=== PATIENT | male | born 1965 | race African-American/Black ===

== ENCOUNTER 2021-02-12 11:09 | Emergency (ER) | payer SELFPAY ==
[2021-02-12 11:22] VITALS: BP 162/71; PULSE 74; TEMP 98.5; BMI 73.5
== END 2021-02-12 13:04 | disposition home or self-care (01) ==
LOC: JERFT 11:09
DX: G56.03 Carpal tunnel syndrome, bilateral upper limbs (principal)
CPT/HCPCS: 73110-TC-LT-FY; 73110-TC-RT-FY; 73130-TC-LT-FY; 73130-TC-RT-FY; 99284-25

== ENCOUNTER 2023-05-01 09:24 | Day surgery (SDC) | payer OTHER ==
[2023-04-26 10:03] VITALS: BMI 33.3
[2023-04-30] MEDS: ACETAMINOPHEN 1000 MG/100 ML BAG IVPB ONE ×2 (16:35→17:40)
[2023-04-30] MEDS: KETOROLAC TROMETHAMINE 30 MG/1 ML VIAL IVPUSH SCH ×2 (17:42→22:38)
[2023-04-30] MEDS: ACETAMINOPHEN 500 MG TABLET (FP) PO SCH ×2 (17:48→23:38)
[2023-04-30] MEDS: ONDANSETRON 4 MG/2 ML VIAL IVPUSH PRN (21:34)
[2023-04-30] MEDS: CEFAZOLIN SODIUM 2 GM in DEXTROSE 5%-WATER 100 ML IVPB SCH (21:34)
[2023-04-30] MEDS: GABAPENTIN 300 MG CAPSULE PO SCH (21:34)
[2023-05-01 01:36] VITALS: RESP 18
[2023-05-01] MEDS: SENNOSIDES/DOCUSATE COMBO (SENNA PLUS) TABLET (UD) PO SCH ×2 (06:21→13:08)
[2023-05-01] MEDS: CEFAZOLIN SODIUM 2 GM in DEXTROSE 5%-WATER 100 ML IVPB SCH ×2 (06:25→13:09)
[2023-05-01] MEDS: ACETAMINOPHEN 500 MG TABLET (FP) PO SCH ×2 (06:25→18:11)
[2023-05-01] MEDS: ONDANSETRON 4 MG/2 ML VIAL IVPUSH PRN ×2 (06:44→13:08)
[2023-05-01 07:41] LABS: HEMATOCRIT 34.5 % (35.4-49); HEMOGLOBIN 11.1 G/dL (11.7-16.9); MCH 26.6 pg (25.7-33.7); MCHC 32.2 g/dl (32.0-35.9); MEAN CELL VOLUME 82.6 fl (80-96); PLATELET COUNT 212.1 10^3/uL (134-434); RBC 4.18 10^6/uL (4.00-5.60); RDW 15.9 % (11.9-15.9); WHITE BLOOD COUNT 12.8 10^3/uL (4.0-10.8)
[2023-05-01] MEDS: KETOROLAC TROMETHAMINE 30 MG/1 ML VIAL IVPUSH PRN ×2 (08:31→15:58)
[2023-05-01 09:10] LABS: CALCIUM 8.5 mg/dL (8.5-10.1)
[2023-05-01 09:11] LABS: BLOOD UREA NITROGEN 13.9 mg/dL (7-18)
[2023-05-01 09:15] LABS: CREATININE 0.8 mg/dL (0.55-1.3)
[~2023-05-01 09:24] MED LIST: ACETAMINOPHEN 1000 MG/100 ML BAG IVPB ONE; ACETAMINOPHEN INJECTION 100 ML IVPB ONE; BUPIVACAINE HCL/PF 0.5% (5MG/ML) 10 ML VIAL ONE; BUPIVACAINE LIPOSOME/PF (EXPAREL) 266 MG/20 ML VIAL ONE; BUPIVICAINE 0.25%/MORPH PF/KETOROLAC - 51ML DISP.SYRINGE IA ONE; CEFAZOLIN 2 GM in DEXTROSE 5%-WATER - 50 ML IVPB ONE; KETOROLAC TROMETHAMINE 30 MG/1 ML VIAL IVPUSH PRN; LACTATED RINGERS SOLUTION 1,000 ML IV SCH; LIDOCAINE HCL/PF 2% SDV 5ML VIAL ONE; MAG HYDROX/AL HYDROX/SIMETH 30 ML UNIT-DOSE CUP PO PRN; MIDAZOLAM HCL 2 MG/2 ML SINGLE DOSE VIAL ONE; ONDANSETRON 4 MG/2 ML VIAL IVPUSH PRN; PROPOFOL 20 ML ONE; PROPOFOL 60 ML ONE; SODIUM CHLORIDE 0.9% P/F 10 ML VIAL IJ ONE; TRANEXAMIC ACID 1000 MG/10 ML VIAL IVPUSH ONE; TRANEXAMIC ACID 1000 MG/10 ML VIAL ONE; VANCOMYCIN 1,000 MG VIAL (RESTRICTED TO ID ONLY) ONE; ceFAZolin SODIUM 1 GM VIAL ONE; oxyCODONE HCL 10 MG SUSTAINED ACTING TABLET PO SCH; oxyCODONE HCL 5 MG TABLET PO PRN
[2023-05-01] MEDS ORDERED: ASPIRIN 325 MG TABLET PO SCH (10:00)
[2023-05-01] MEDS ORDERED: MULTIVITAMINS (DAILY MVI) TABLET (FP) PO SCH (10:00)
[2023-05-01] MEDS ORDERED: PANTOPRAZOLE 40 MG TABLET PO SCH (10:00)
[2023-05-01] MEDS: GABAPENTIN 300 MG CAPSULE PO SCH (13:08)
[2023-05-01] MEDS ORDERED: oxyCODONE HCL 10 MG SUSTAINED ACTING TABLET PO SCH (13:30)
[2023-05-01] MEDS ORDERED: ACETAMINOPHEN 1000 MG/100 ML BAG IVPB SCH (13:30)
[2023-05-01 14:17] VITALS: BP 127/65; PULSE 66; TEMP 98.3
== END 2023-05-01 18:41 | disposition home or self-care (01) | DRG 470 ==
LOC: FM/S 09:24 → FASUSAT 09:24 → UNDODISIN 18:41 → FASUSAT 18:41
PROVIDERS: ATTEND Internal Medicine
PROC: 8E0Y0CZ Robotic Assisted Procedure of Lower Extremity, Open Approach (ICD-10-PCS; 2023-04-30)
PROC: 0SRD0J9 Replacement of Left Knee Joint with Synthetic Substitute, Cemented, Open Approach (ICD-10-PCS; principal; 2023-04-30 13:27)
DX: M17.12 Unilateral primary osteoarthritis, left knee (principal)
CPT/HCPCS: 36415; 73560-TC-LT-FY; 80048; 85027; 94760; 97010-GP; 97116-GP; 97162-GP; C1713; C1776; C1889

== ENCOUNTER 2023-07-04 14:09 | Emergency (ER) | payer OTHER ==
[2023-07-04 14:32] VITALS: BP 124/79; PULSE 81; RESP 16; TEMP 98.5; BMI 34.0
== END 2023-07-04 17:09 | disposition home or self-care (01) ==
LOC: JERFT 14:09
DX: R22.0 Localized swelling, mass and lump, head (principal); H92.01 Otalgia, right ear; H60.501 Unspecified acute noninfective otitis externa, right ear
CPT/HCPCS: 99283-25

== ENCOUNTER 2023-07-14 12:13 | Emergency (ER) | payer OTHER ==
[2023-07-14 12:19] VITALS: BP 126/75; PULSE 88; RESP 18; TEMP 98.1; BMI 34.0
[2023-07-14] MEDS ORDERED: KETOROLAC TROMETHAMINE 30 MG/1 ML VIAL IM ONE (13:33)
[2023-07-14] MEDS ORDERED: KETOROLAC TROMETHAMINE 30 MG/1 ML VIAL ONE (15:06)
== END 2023-07-14 15:17 | disposition home or self-care (01) ==
LOC: JERFT 12:13 → JER 12:13 → JERFT 15:17
DX: H92.01 Otalgia, right ear (principal); R59.1 Generalized enlarged lymph nodes; Q17.0 Accessory auricle
CPT/HCPCS: 99282-25